=== PATIENT | female | born 1995 | race Caucasian/White ===

== ENCOUNTER 2016-09-29 14:08 | Emergency (ER) | payer OTHER ==
--- NOTE | 2016-09-29 15:35 | ED ---
Throat Pain/Nasal Congestion - HPI Summary HPI Summary: 21 yo female suffering from tmj since her tonsils were removed 6 months ago. She has seen her pmd who was referring her for physical therapy and an oral surgeon last week and she is still waiting on the referral. Her pain got worse last night and she can't sleep, no fevers, some pain with eating no other new dental pain - History of Current Complaint Chief Complaint: EDGeneral Time Seen by Provider: 09/29/16 15:28 Hx Obtained From: Patient Onset/Duration: Lasting Weeks Severity: Worse Since: - last night Associated Signs And Symptoms: Positive: Negative. Negative: Dysphagia, FB Sensation, Drooling, Wheezing, Hoarseness, Sinus Discomfort, Nasal Discharge Cough: None - Epiglottits Risk Factors Epiglottis Risk Factors: Negative - Allergies/Home Medications Allergies/Adverse Reactions: Allergies Allergy/AdvReac Type Severity Reaction Status Date / Time Sulfamethoxazole Allergy Intermediate Hives Verified 09/29/16 14:14 w/Trimethoprim [From Bactrim] Morphine Allergy Difficulty Verified 09/29/16 14:14 Breathing/Wheezing PMH/Surg Hx/FS Hx/Imm Hx Previously Healthy: No - polycystic kidney disease, depression, anxiety Endocrine/Hematology History: Denies: Hx Anticoagulant Therapy, Hx Blood Disorders, Hx Blood Transfusions, Hx Bone Marrow Disease, Hx Diabetes, Hx Systemic Lupus Erythematosus, Hx Sickle Cell Disease, Hx Thyroid Disease, Hx Anemia, Hx Unexplained Bleeding, Hx Coagulopothy, Autoimmune Disease, Other Endocrine/Hematological Disorders Cardiovascular History: Reports: Hx Hypertension - ON DAILY MEDS, Dx AT AGE 14 Denies: Hx Aneurysm, Hx Angina, Hx Angioplasty, Hx Atrial Fibrillation, Hx Auto Implanted Cardiovert Defib, Hx Cardiac Arrest, Hx Cardiomegaly, Hx Congenital Heart Disease, Hx Congestive Heart Failure, Hx Coronary Artery Disease, Hx Deep Vein Thrombosis, Hx Embolism, Hx Hypercholesterolemia, Hx Hypotension, Hx Myocardial Infarction, Hx Pacemaker/ICD, Hx Peripheral Vascular Disease, Hx Rheumatic Fever, Hx Syncope, Hx Valvular Heart Disease, Hx Supraventricular Ventricular Tachycardia, Other Cardiovascular Problems/ Disorders Respiratory History: Denies: Hx Asthma, Hx Bronchopulmonary Dysplasia, Hx Chronic Bronchitis, Hx Chronic Obstructive Pulmonary Disease (COPD), Hx Cystic Fibrosis, Hx Lung Cancer , Hx Pleural Effusion, Hx Pneumonia, Hx Pulmonary Edema, Hx Pulmonary Embolism, Hx Seasonal Allergies, Hx Sleep Apnea, Other Respiratory Problems/Disorders GI History: Reports: Hx Gastroesophageal Reflux Disease - ON DAILY MEDS, Hx Hiatal Hernia - ON DAILY MEDS, Hx Irritable Bowel Denies: Hx Cirrhosis, Hx Crohn's Disease, Hx Diverticulosis, Hx Gall Bladder Disease, Hx Gastrointestinal Bleed, Hx Jaundice, Hx Obstructive Bowel, Hx Ileostomy, Hx Pyloric Stenosis, Hx Ulcer, Hx Urosepsis, Other GI Disorders History: Reports: Other Problems/Disorders - ibs Denies: Hx Acute Renal Failure, Hx Benign Prostatic Hyperplasia, Hx Chronic Renal Failure, Hx Kidney Infection, Hx Kidney Stones Musculoskeletal History: Reports: Hx Tendonitis - Hx OF RT ELBOW, NO PROBLEMS IN "LONG TIME" Denies: Hx Arthritis, Hx Rheumatoid Arthritis, Hx Back Problems, Hx Bursitis , Hx Congenital Bone Abnormalities, Hx Fibromyalgia, Hx Gout, Hx Orthopedic Injury, Hx Osteoporosis, Hx Scoliosis, Hx of Fracture(s), Hx Joint Replacement, Other Musculoskeletal History Sensory History: Reports: Hx Cataracts, Hx Contacts or Glasses - GLASSES Denies: Hx Eye Injury, Hx Eye Prosthesis, Hx Glaucoma, Hx Legally Blind, Hx Macular Degeneration, Hx Vision Problem, Hx Deafness, Hx Hearing Aid, Hx Hearing Problem, Hx Auditory Problems, Other Sensory Impairments Opthamlomology History: Reports: Hx Contacts or Glasses - GLASSES EENT History: Denies: Hx Deafness, Hx Hearing Problem, Hx Hearing Aid, Hx Auditory Problems , Hx Seasonal Allergies, Pharyngitis, Hx Tonsillitis, Other Neurological History: Reports: Hx Migraine - GETTING WORSE THIS SUMMER 2015 USUALLY DAILY,NO Rx, JUST RESTS IN DARK Denies: Hx CVA, Hx Dementia, Hx Developmental Delay, Hx Headaches, Hx Nerve Disease, Hx Peripheral Neuropathy, Hx Seizures, Hx Spinal Cord Injury, Hx Transient Ischemic Attacks (TIA), Hx CVP, Other Neuro Impairments/Disorders Psychiatric History: Reports: Hx Anxiety - ON DAILY MEDS, Hx Depression Denies: Hx Attention Deficit Hyperactivity Disorder, Hx Autism, Hx Eating Disorder, Hx Oppositional [place] Disorder, Hx Panic Disorder, Hx Post Traumatic Stress Disorder, Hx Inpatient Treatment, Hx Community Mental Health Tx , Hx Schizophrenia, Hx Bipolar Disorder, Hx Suicide Attempt, Hx of Violent Episodes Against Others, Hx Substance Abuse, Other Psychiatric Issues/Disorders - Cancer History Hx Hematologic Symptoms: No Hx Chemotherapy: No Hx Radiation Therapy: No Hx Palliative Cancer Treatment: No - Surgical History Surgery Procedure, Year, and Place: 6 mos tonsillectomy in [place] Hx Anesthesia Reactions: No - Immunization History Hx Pertussis Vaccination: Yes Immunizations Up to Date: Yes Infectious Disease History: No Infectious Disease History: Reports: Hx Clostridium Difficile, Hx Hepatitis, Hx Human Immunodeficiency Virus (HIV), Hx of Known/Suspected MRSA, Hx Shingles, Hx Tuberculosis, Hx Known/Suspected VRE, Hx Known/Suspected VRSA, History Other Infectious Disease Denies: Traveled Outside the [place] in Last 30 Days - Social History Occupation: Unemployed Lives: With Family Alcohol Use: Occasionally Alcohol Amount: MAYBE 2-3 DRINKS/MONTH Substance Use Type: Reports: Marijuana Substance Use Comment - Amount & Last Used: daily, STATES WILL REFRAIN FOR 3 DAYS PREOP Smoking Status (MU): Light Every Day Tobacco Smoker Type: Cigarettes Amount Used/How Often: 1/2 PPD 8 YEARS Length of Time of Smoking/Using Tobacco: 8 years Have You Smoked in the Last Year: Yes Review of Systems Constitutional: Negative Negative: Fever Negative: Photophobia Negative: Dental Pain Negative: Palpitations, Chest Pain Negative: Shortness Of Breath, Cough Negative: Abdominal Pain Negative: no symptoms reported, frequency Negative: Arthralgia Negative: Rash Negative: Headache Negative: Anxious All Other Systems Reviewed And Are Negative: Yes Physical Exam Triage Information Reviewed: Yes Vital Signs On Initial Exam: Initial Vitals Temp Pulse Resp BP Pulse Ox 98.4 F 81 16 173/101 98 09/29/16 14:15 09/29/16 14:15 09/29/16 14:15 09/29/16 14:15 09/29/16 14:15 Vital Signs Reviewed: Yes Appearance: Positive: Well-Appearing, Pain Distress Skin: Positive: Warm, Skin Color Reflects Adequate Perfusion, Dry Head/Face: Positive: TMJ Tenderness Eyes: Positive: Normal, EOMI, LIZETH ENT: Positive: Normal ENT inspection, Hearing grossly normal, Pharynx normal. Negative: Pharyngeal erythema, Nasal congestion, Nasal drainage, TMs normal, TM bulging, TM dull Dental: Positive: Gross Decay/Caries @. Negative: Percussion Tenderness @, Dental Fracture @, Abscess @, Cellulitis @ Neck: Positive: Supple, Nontender, No Lymphadenopathy Respiratory/Lung Sounds: Positive: Clear to Auscultation, Breath Sounds Present Cardiovascular: Positive: Normal, RRR Abdomen Description: Positive: Nontender, No Organomegaly Bowel Sounds: Positive: Present Musculoskeletal: Positive: Normal Neurological: Positive: Normal, Sensory/Motor Intact, Alert, Oriented to Person Place, Time, CN Intact II-III, Reflexes Intact Psychiatric: Positive: Normal AVPU Assessment: Alert - [place] Coma Scale Best Eye Response: 4 - Spontaneous Best Motor Response: 6 - Obeys Commands Best Verbal Response: 5 - Oriented Diagnostics - Vital Signs Vital Signs Temp Pulse Resp BP Pulse Ox 09/29/16 14:15 98.4 F 81 16 173/101 98 - Laboratory Lab Statement: Any lab studies that have been ordered have been reviewed, and results considered in the medical decision making process. EENT Course/Dx - Course Course Of Treatment: 21 yo with tmj since tonsillectomy exam otherwise normal. will give pain meds she will call pmd to get the pt referral pt denies substance abuse hx. - Diagnoses Provider Diagnoses: TMJ (temporomandibular joint disorder) Discharge - Discharge Plan Condition: Stable Disposition: HOME Patient Education Materials: Temporomandibular Disorder (ED)
[2016-09-29 15:38] VITALS: BP 151/92
== END 2016-09-29 15:46 | disposition home or self-care (01) ==
LOC: ED 14:08
DX: M26.609 Unspecified temporomandibular joint disorder, unspecified side (principal); R68.84 Jaw pain; F17.210 Nicotine dependence, cigarettes, uncomplicated
CPT/HCPCS: 99282

== ENCOUNTER 2018-09-30 18:02 | Emergency (ER) | payer OTHER ==
--- OUTSIDE RECORDS SUMMARY | 2018-09-30 18:08 | XMS REPORT | Continuity of Care Document ---
:1995 External Reference #:[id number] Author Name Iqra Chester Care Team Providers Name Role Phone Yolanda Vasquez M.D. Primary Care Physician Unavailable Payers Type Date Identification Numbers Payment Provider Subscriber Policy Number: [id number] [employer] Jose Ramon Villegas PayID: [id number] [address] [place] [address] Advance Directives Description No Information Available Problems Date Description Provider Status Onset: 01/31/2016 Acute sinusitis Lola Ashton MD Active Onset: 01/31/2016 Obesity Lola Ashton MD Active Onset: 01/31/2016 Difficulty breathing Lola Ashton MD Active Family History Date Family Member(s) Problem(s) Comments General Thyroid Disease General Cancer General Hypertension General Diabetes General Stroke Father Polycystic renal disease;s/p renal transplant 2001 Mother Depression Mother Syncope Mother Sleep Apnea Siblings Oldest brother PKD,depression Sister depression, PTSD, Oldest sister anxiety Sister w/iron neurofibromytosis,dpressio deficiency Siblings 4 Social History Type Date Description Comments Sex Unknown Marital Status Lives With Spouse Occupation Unemployed ETOH Use Denies alcohol use Recreational Drug Use Marijuana used for pain reliefDocument: 07/19/18 - History GS Tobacco Use Start: Unknown Patient is a current 1-5 day smoker, smokes every day Smoking Status Reviewed: 08/16/18 Patient is a current 1-5 day smoker, smokes every day Exercise Type/Frequency Exercises regularly Allergies, Adverse Reactions, Alerts Date Description Reaction Status Severity Comments 01/31/2016 Morphine Active 01/31/2016 Bactrim Active Medications Medication Date Status Form Strength Qnty SIG Indications Ordering Provider Labetalol HCL 01/31/ Active Tablets 200mg 60tabs 1 tab po I12.9 Darshana 2018 bid MD Saturnino Pantoprazole 08/27/ Active Tablets DR 20mg 30tabs 1 by Q40.1 2018 mouth MD Christina every day Spironolactone 08/16/ Active Tablets 50mg 30tabs one po Q40.1 2018 daily MD Christina Lexapro 08/16/ Active Tablets 10mg 30tabs 1 by F33.0 2018 mouth MD Christina daily, in Am Gummies / Active daily Unknown 0000 Enalapril / Active Tablets 2.5mg 1 by Unknown Maleate 0000 mouth every day Melatonin ER / Active Tablets ER 10mg take one Unknown 0000 tablet/ca psule by mouth at bedtime. Tums / Active Chewtabs 500mg 2 as Unknown 0000 needed for acid stomach Nexium 24HR 08/16/ Hx Tablets DR 20mg 30tabs one po Q40.1 2018 - daily MD Christina 2018 Cipro 02/18/ Hx Tablets 500mg 1 by Unknown 2015 mouth twice a day Cefuroxime 01/30/ Hx Tablets 250mg 20tabs 1 tab by J01.80 Lola Axetil 2015 mouth MD Poli twice a day Ranitidine HCL 01/29/ Hx Capsules 150mg 1 by Unknown 2016 mouth twice a day Enalapril 01/29/ Hx Tablets 2.5mg 1 by Unknown Maleate 2016 mouth every day Hyoscyamine 01/29/ Hx Tablets ER 0.375mg 1 tab by Unknown Sulfate ER 2015 12HR mouth daily Sertraline HCL 01/29/ Hx Tablets 100mg 1 by Unknown 2016 mouth every day Spironolactone / Hx Tablets 25mg 30tabs one po Q40.1 Unknown 0000 - daily 2018 Immunizations Description No Information Available Vital Signs Date Vital Result Comment 08/16/2018 2:07pm Height 68 inches 5'8" Weight 275.12 lb Heart Rate 86 /min BP Systolic 150 mmHg BP Diastolic 102 mmHg Body Temperature 97.8 F O2 % BldC Oximetry 97 % BMI (Body Mass Index) 41.8 kg/m2 07/19/2018 11:31am Height 68 inches 5'8" Weight 265.00 lb Heart Rate 68 /min BP Systolic 152 mmHg BP Diastolic 98 mmHg Respiratory Rate 16 /min Body Temperature 97.1 F BMI (Body Mass Index) 40.3 kg/m2 02/19/2016 10:00am Height 68 inches 5'8" Weight 231.00 lb Heart Rate 58 /min BP Systolic 140 mmHg BP Diastolic 72 mmHg Respiratory Rate 14 /min O2 % BldC Oximetry 90 % BMI (Body Mass Index) 35.1 kg/m2 01/31/2016 8:49am Height 68 inches 5'8" Weight 231.38 lb Heart Rate 86 /min BP Systolic Sitting 132 mmHg BP Diastolic Sitting 77 mmHg Respiratory Rate 16 /min O2 % BldC Oximetry 98 % BMI (Body Mass Index) 35.2 kg/m2 Neck Circumference in inches 16 Results Test Date Facility Test Result H/L Range Note Laboratory test 09/01/2018 [facility] TSH 2.15 mcIU/mL N 0.34- 5.[address] ([place] [address] Stim Horm) [phone] Vitamin B12 547 pg/mL N 180-914 1 Basic Metabolic Panel 09/01/2018 [facility] Sodium 137 mmol/L N 135-[address] [place] [address] [phone] Potassium 4.4 mmol/L N 3.5-5.0 Chloride 102 mmol/L N 101-111 Co2 Carbon Dioxide 28 mmol/L N 22-32 Anion Gap 7 mmol/L N 2-11 Glucose 92 mg/dL N 70-100 Blood Urea Nitrogen 14 mg/dL N 6-24 Creatinine 0.98 mg/dL High 0.51-0.95 BUN/Creatinine Ratio 14.3 N 8-20 Calcium 10.2 mg/dL N 8.6-10.3 Egfr Non- 69.7 >60 Egfr 84.4 >60 2 Laboratory test 09/01/2018 [facility] Total Protein < 4 mg/dL finding [address] [place] [address] [phone] Normal Range 180 to 914 Indeterminate Range 145 to 180 Deficient Range <145 2 Because ethnic data is not always readily available, this report includes an eGFR for both -Americans and non- Americans. The National Kidney Disease Education Program (NKDEP) does not endorse the use of the MDRD equation for patients that are not between the ages of 18 and 70, are , have extremes of body size, muscle mass, or nutritional status, or are non- or non-. According to the National Kidney Foundation, irrespective of diagnosis, the stage of the disease is based on the level of kidney function: Stage Description GFR(mL/min/1.73 m(2)) 1 Kidney damage with normal or decreased GFR 90 2 Kidney damage with mild decrease in GFR 60-89 3 Moderate decrease in GFR 30-59 4 Severe decrease in GFR 15-29 5 Kidney failure <15 (or dialysis) Procedures Date Code Description Status 02/08/2016 96432 Sleep Study Unattended,HRT Rate,Oxygen Sat,Resp Completed Effort/Airflow Encounters Type Date Location Provider Dx Diagnosis Office Visit 08/16/2018 [facility] Internal Yolanda Vasquez MD 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 2:00p Medicine - [address] Q61.3 Polycystic kidney, unspecified I10 Essential (primary) hypertension K21.0 Gastro-esophageal reflux disease with esophagitis F41.9 Anxiety disorder, unspecified F33.0 Major depressive disorder, recurrent, mild F17.210 Nicotine dependence, cigarettes, uncomplicated Office Visit 07/19/2018 11:00a Surgical Godfrey Drake, K64.5 Perianal [facility] , FACS thrombosis Office Visit 02/19/2016 9:45a Pulmonology And Lola R06.83 [facility] MD Poli [facility] E66.09 Other obesity due to excess calories Office Visit 01/31/2016 8:45a Pulmonology And Sleep Lola Ashton R06.83 [facility] E66.09 Other obesity due to excess calories J01.80 Other acute sinusitis Office Visit 06/03/2010 3:00p Orthopedic Dinorah Becerril, 923.20 [facility] MICHAEL WangS) Mery Plan of Treatment Future Appointment(s):10/22/2018 11:30 am - Darshana Matamoros MD at [facility] Oamnkqqery37/18/2019 1:40 pm - Yolanda Vasquez MD at [facility] Internal Medicine - [address]09/09/2018 - Darshana Matamoros MDQ61.2 Polycystic kidney, adult typeNew Labs:Urinalysis Profile, Ordered: 09/09/18New Xrays:Mra Head W/O, Ordered: 09/09/18I12.9 Hypertensive chronic kidney disease with stage 1 through staNew Medication:Labetalol HCL 200 mg - 1 tab po bid
--- OUTSIDE RECORDS SUMMARY | 2018-09-30 18:08 | XMS REPORT ---
:1995 Author Organization [facility] Address [address] [place] [address] Care Team Providers Name Role Phone Navdeep Case Unavailable Unavailable PROBLEMS Type Condition ICD9-CM AMJ14-LY Onset Condition SNOMED Code Code Code Dates Status Problem Gastroesophageal K21.9 Active 067960327 reflux disease, esophagitis presence not specified Problem Smoking F17.200 Active 98647834 Problem Depression, F32.9 Active 68735933 unspecified depression type Problem On Depo-Provera for Z30.40 Active 307225367 contraception Problem Morbid (severe) E66.01 Active 87800353944713 obesity due to excess calories Problem Body mass index Z68.41 Active 950460153 (BMI) of 40.0-44.9 in adult Problem Dysfunction of both H69.83 Active 09257330 Eustachian tubes Problem Polycystic kidney Q61.3 Active 47840229 disease Problem Hypertension, I10 Active 60553579 unspecified type Problem Primary insomnia F51.01 Active 6198778 ALLERGIES No Information ENCOUNTERS Encounter Location Date Diagnosis [facility] [address] Aug, [place] [address] [place] [address] Aug, [place] [address] [place] [address] Jul, [place] [address] Q61.3 ; Hypertension, unspecified type I10 and Acute hemorrhoid K64.[address] [place] [address] Jun, Acute hemorrhoid K64.9 [place] [address] Hypertension, unspecified type I10 [place] [address] Nov, [place] [address] [facility] [address] Nov, [place] [address] [facility] [address] Oct, [place] [address] [facility] [address] [place] Oct, [place] [address] [facility] [address], [place] [address] [facility] [address] Sep, [place] [address] [facility] [address] Aug, [place] [address] [facility] [address] Aug, [place] [address] [facility] [address] Aug, [place] [address] [facility] [address] [place] Aug, [place] [address] hematuria N30.00 ; Polycystic kidney disease Q61.3 ; Depression, unspecified depression type F32.9 ; Smoking F17.200 and Hypertension, unspecified type I10 [facility] [address] Aug, [place] [address] [facility] [address] Aug, [place] [address] [facility] [address] Jul, [place] [address] [facility] [address] [place] Jul, [place] [address] [facility] [address] Jul, Primary insomnia F51.01 ; [place] [address] Depression, unspecified depression type F32.9 ; Polycystic kidney disease Q61.3 and Smoking F17.200 [facility] [address] Jul, [place] [address] [facility] [address] Jun, [place] [address] [facility] [address] Jun, [place], [place] [address] depression type F32.9 ; Polycystic kidney disease Q61.3 ; Disorder of teeth and supporting structures, unspecified K08.9 ; Smoking F17.200 and Dysfunction of both Eustachian tubes H69.83 [place] [facility] [address] Jun, [place] [address] [facility] [address] Jun, [place] [address] [facility] [address] [facility] Jun, [place] [address] May, [place] [address] May, [place], [place] [address] depression type F32.9 ; Gastroesophageal reflux disease, esophagitis presence not specified K21.9 and Elevated blood pressure reading without diagnosis of hypertension R03.[address] May, [place] [address] May, [place] [address] May, [place] [address] Apr, [place] [address] Mar, [place] [address] Mar, [place] [address] IMMUNIZATIONS No Known Immunizations SOCIAL HISTORY Never Assessed REASON FOR REFERRAL FUNCTIONAL STATUS PLAN OF CARE VITAL SIGNS MEDICATIONS Unknown Medications PROCEDURES No Known procedures RESULTS No Results REASON FOR VISIT Transfer of care Insurance Providers [facility] Member Patient Patient Patient Patient Patient Subscriber Subscriber Subscriber Group Insurance Plan Plan Plan Plan ID Relationship Address Phone Name Date of ID Name Date of No Type Insurance Insurance Insurance Coverage to Subscriber Address Phone Name Dates [facility]P [phone] UHCCP self Shraddha [id number] Medicaid [id number] 34 Medicaid [facility] [place] [facility] [address] Medicaid [address] [phone] Medicaid self Shraddha [id number] [facility] [address] [place] [address] y UHCCP [phone] UHCCP self Shraddha [id number] Medicaid [id number] Medicaid [facility]3] [address] Medicaid [address] [phone] Medicaid self Shraddha [id number] [facility] [address] [place] [address] y Case [phone] Case self Shraddha [id number] Management [place] 02 Management [facility] [address] Community y [employer] Open [phone] [employer] Open self Shraddha [id number] Access [id number] Access [facility] [address] Medical [place] Medical y [id number] MEDICAL (GENERAL) HISTORY Type Description Date Medical History hiatal hernia Medical History polycystic kidney disease Medical History PKD Medical History HTN Medical History Depression Medical History Anxiety Medical History GERD Surgical History tonsilectomy 08/2015 Hospitalization History Kidney infection 08/2014 Hospitalization History 6 kidney infections between 13 and 18 years old
[2018-09-30 18:26] VITALS: BP 142/84
--- NOTE | 2018-09-30 18:33 | UC ---
Complaint Female HPI - HPI Summary HPI Summary: 23 yo female presents with urinary burning, frequency, and pressure since this morning. Since that time she has also been having right flank pain. No hx of kidney stone. Denies hematuria, fever, abdominal pain, n/v. - History Of Current Complaint Chief Complaint: UCGU Stated Complaint: URINARY COMPLAINT Time Seen by Provider: 09/30/18 18:33 Hx Obtained From: Patient Hx Last Menstrual Period: [id number] Onset/Duration: Sudden Onset Timing: Constant Severity Initially: Moderate Severity Currently: Moderate Pain Intensity: 7 Pain Scale Used: 0-10 Numeric - Allergies/Home Medications Allergies/Adverse Reactions: Allergies Allergy/AdvReac Type Severity Reaction Status Date / Time morphine Allergy Difficulty Verified 09/30/18 18:27 Breathing/Wheezing sulfamethoxazole Allergy Hives Verified 09/30/18 18:27 [From Bactrim] trimethoprim [From Bactrim] Allergy Hives Verified 09/30/18 18:27 Home Medications: Home Medications Labetalol TAB* [Trandate TAB*] 100 mg PO BID 09/30/18 [History Confirmed ] Melatonin [Melatonin Maximum Strengt] 10 mg PO BEDTIME 09/30/18 [History Confirmed 09/30/18] Vit37/Iron/Folic Acid [Prenata] 1 chw PO DAILY 09/30/18 [History Confirmed 09/30/18] PMH/Surg Hx/FS Hx/Imm Hx - Additional Past Medical History Additional PMH: PCKD Cardiovascular History: Hypertension Other History Of: Negative For: Anticoagulant Therapy - Surgical History Surgical History: Yes Surgery Procedure, Year, and Place: 6 mos tonsillectomy in [place] - Family History Known Family History: Positive: None - Social History Lives: With Family Alcohol Use: Occasionally Alcohol Amount: MAYBE 2-3 DRINKS/MONTH Substance Use Type: Marijuana Substance Use Comment - Amount & Last Used: daily Smoking Status (MU): Light Every Day Tobacco Smoker Type: Cigarettes Amount Used/How Often: 1/2 PPD 8 YEARS Length of Time of Smoking/Using Tobacco: 8 years Have You Smoked in the Last Year: Yes Household Exposure Type: Cigarettes Review of Systems All Other Systems Reviewed And Are Negative: Yes Constitutional: Positive: Negative Respiratory: Positive: Negative Cardiovascular: Positive: Negative Gastrointestinal: Positive: Negative Genitourinary: Positive: Dysuria Neurological: Positive: Negative Psychological: Positive: Negative Physical Exam - Summary Physical Exam Summary: GENERAL: NAD. WDWN. No pain distress. SKIN: No rashes, sores, lesions, or open wounds. NECK: Supple. Nontender. No lymphadenopathy. CHEST: CTAB. No r/r/w. No accessory muscle use. Breathing comfortably and in no distress. CV: RRR. Without m/r/g. Pulses intact. Cap refill <2seconds ABDOMEN: Soft. NTTP. No distention or guarding. Mild right CVA tenderness Bowel sounds present NEURO: Alert. PSYCH: Age appropriate behavior. Triage Information Reviewed: Yes Vital Signs: Initial Vital Signs Temp 98.7 F 09/30/18 18:21 Pulse 92 09/30/18 18:21 Resp 18 09/30/18 18:21 BP 142/84 09/30/18 18:21 Pulse Ox 99 09/30/18 18:21 Laboratory Tests 09/30/18 18:40 POC Urine Color Yellow POC Urine Clarity Cloudy POC Urine pH 7.0 POC Ur Specif [place] 1.025 POC Urine Protein 3+ A POC Ur Glucose (UA) Negative POC Urine Ketones Negative POC Urine Blood 3+ A POC Urine Nitrite Positive A POC Urine Bilirubin Negative POC Urine Urobilinogen 0.2 POC U Leukocyte Esteras 1+ A Vital Signs Reviewed: Yes Complaint Female Dx - Course Course Of Treatment: UTI rx for cipro for 7 days to cover for possible early pyelonephritis. - Differential Dx/Diagnosis Provider Diagnosis: UTI (urinary tract infection) Discharge - Sign-Out/Discharge Documenting (check all that apply): Patient Departure All imaging exams completed and their final reports reviewed: No Studies - Discharge Plan Condition: Stable Disposition: HOME Prescriptions: Ciprofloxacin TAB* [Cipro 500 MG TAB*] 500 mg PO BID #14 tab Patient Education Materials: Urinary Tract Infection in Women (DC) Referrals: Navdeep Case PA [Primary Care Provider] - Additional Instructions: If you develop a fever, shortness of breath, chest pain, new or worsening symptoms - please call your PCP or go to the ED. Your blood pressure was high at todays visit. Please see your primary provider within 4 weeks for recheck and re-evaluation. - Billing Disposition and Condition Condition: STABLE Disposition: Home - Attestation Statements Provider Attestation: I was available for consult. This patient was seen by the MARQUIS. The patient was not presented to, seen by, or examined by me. -Justa
== END 2018-09-30 19:15 | disposition home or self-care (01) ==
LOC: UCEAST 18:02
DX: N39.0 Urinary tract infection, site not specified (principal); F17.210 Nicotine dependence, cigarettes, uncomplicated; I10 Essential (primary) hypertension; Z88.1 Allergy status to other antibiotic agents; Z88.2 Allergy status to sulfonamides; Z88.5 Allergy status to narcotic agent
CPT/HCPCS: 81003; 84702; 87077; 87086; 87186; 99212; G0463

== ENCOUNTER 2019-09-24 08:23 | Observation (INO) | payer OTHER ==
--- OUTSIDE RECORDS SUMMARY | 2019-09-24 08:37 | XMS REPORT | Continuity of Care Document ---
:1995 External Reference #:[id number] Author Name Philly Marcum N.P. (transmitted by agent of provider Aileen De La Torre) Address [address], [place] [address] Care Team Providers Name Role Phone Yolanda Vasquez M.D. 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 Problems Provider Date Difficulty breathing Lola Ashton MD Onset: 01/31/2016 Obesity Lola Ashton MD Onset: 01/31/2016 Acute sinusitis Lola Ashton MD Onset: 01/31/2016 Social History Type Date Description Comments Sex Unknown ETOH Use Denies alcohol use Recreational Drug Use Marijuana used for pain reliefDocument: 07/19/18 - History GS Tobacco Use Start: Unknown Patient is a current smoker, smokes every day Tobacco Use Start: Unknown Heavy tobacco smoker (more than 10 cigarettes/day) Smoking Status Reviewed: 09/21/19 Heavy tobacco smoker (more than 10 cigarettes/day) Exercise Type/Frequency Exercises regularly Allergies, Adverse Reactions, Alerts Active Allergies Reaction Severity Comments Date Morphine 01/31/2016 Bactrim 01/31/2016 Medications Active Medications SIG Qnty Indications Ordering Date Provider Triamcinolone apply twice a 30gm R21 Philly Marcum, 09/21/2019 Acetonide day until clear N.P. 0.1% Cream Cipro 1 by mouth twice 20tabs N39.0 Philly Varn, 09/21/2019 500mg Tablets a day for 10 N.P. days Labetalol HCL take 2 tablets 360tabs I12.9 Talya Saba MD 06/20/2019 200mg by mouth twice a Tablets day. Tums 2 as needed for Unknown 500mg Chewtabs acid stomach History Medications Cipro one by mouth 20tabs Talya Saba MD 07/26/2019 - 500mg Tablets twice daily for 09/20/2019 10 days Cipro 1 by mouth twice 14tabs Other Ordering 04/04/2019 - Unknown 500mg Tablets a day for 7 days Provider Immunizations Description No Information Available Vital Signs Date Vital Result Comment 09/21/2019 11:22am Height 68 inches 5'8" Weight 269.00 lb Heart Rate 87 /min BP Systolic Sitting 134 mmHg BP Diastolic Sitting 72 mmHg Body Temperature 98.0 F O2 % BldC Oximetry 97 % BMI (Body Mass Index) 40.9 kg/m2 06/20/2019 3:02pm Height 68 inches 5'8" Weight 269.00 lb Heart Rate 88 /min BP Systolic Sitting 146 mmHg left arm large cuff BP Diastolic Sitting 99 mmHg left arm large cuff O2 % BldC Oximetry 98 % room air BMI (Body Mass Index) 40.9 kg/m2 Results Test Acquired Date Facility Test Result H/L Range Note Ua Routine 09/21/2019 [facility] Ua Specific [place] <pending> Ua PH <pending> Ua Color <pending> Ua Appera <pending> Ua WBC <pending> Ua Protein <pending> Ua Glucose <pending> Ua Ketones <pending> Ua Bilirubin <pending> Ua Urobilinogen <pending> Ua Nitrite <pending> Ua Occult Blood <pending> Ua Routine 09/21/2019 [facility] Ua Specific [place] 1.020 Ua PH 5 Ua Color med yellow Ua Appera cloudy Ua WBC ++ Ua Protein ++ Ua Glucose Norm Ua Ketones Neg Ua Bilirubin Neg Ua Urobilinogen Norm Ua Nitrite Neg Ua Occult Blood 250 Renal Function 07/25/2019 [facility] Albumin 4.0 g/dL Normal 3.2-5.2 Panel [address] [place] [address] [phone] Calcium 9.1 mg/dL Normal 8.6-10.3 Co2 Carbon Dioxide 24 mmol/L Normal 22-32 Chloride 105 mmol/L Normal 101-111 Glucose 87 mg/dL Normal 70-100 Phosphorus 3.3 mg/dL Normal 2.5-5.0 Potassium 4.1 mmol/L Normal 3.5-5.0 Sodium 138 mmol/L Normal 135-145 Blood Urea Nitrogen BUN 16 mg/dL Normal 6-24 Creatinine 07/25/2019 [facility] Creatinine 1.27 mg/dL High 0.51-0.[address] [place] [address] [phone] Egfr Non- 51.3 >60 Egfr 62.0 >60 1 CBC Auto 07/25/2019 [facility] White Blood 11.8 10^3/uL High 3.5-10.[address] [place] [address] [phone] Red Blood Count 4.84 10^6/uL Normal 3.70-4.87 Hemoglobin 14.9 g/dL Normal 12.0-16.0 Hematocrit 44 % Normal 35-47 Mean Corpuscular Volume 91 fL Normal 80-97 Mean Corpuscular Hemoglobin 31 pg Normal 27-31 Mean Corpuscular HGB Conc 34 g/dL Normal 31-36 Red Cell Distribution Width 14 % Normal 10-15 Platelet Count 333 10^3/uL Normal 150-450 Mean Platelet Volume 8.8 fL Normal 7.4-10.4 Abs Neutrophils 8.2 10^3/uL High 1.5-7.7 Abs Lymphocytes 2.6 10^3/uL Normal 1.0-4.8 Abs Monocytes 0.7 10^3/uL Normal 0-0.8 Abs Eosinophils 0.2 10^3/uL Normal 0-0.6 Abs Basophils 0.1 10^3/uL Normal 0-0.2 Abs Nucleated RBC 0.0 10^3/uL Granulocyte % 69.5 % Lymphocyte % 22.1 % Monocyte % 5.7 % Eosinophil % 2.1 % Basophil % 0.6 % Nucleated Red Blood Cells % 0.3 Laboratory test 07/25/2019 [facility] Total Protein 45 mg/dL finding [address] [address] [phone] Creatinine Random Urine 114.73 mg/dL Urinalysis Profile 07/25/2019 [facility] Urine Color Yellow [address] [place] [address] [phone] Urine Appearance Cloudy Urine Specific [place] 1.011 Normal 1.010-1.030 Urine pH 7.0 Normal 5-9 Urine Urobilinogen Negative Negative Urine Ketones Negative Negative Urine Protein 1+(30 mg/dL) Abnormal Negative Urine Leukocytes 3+ Abnormal Negative Urine Blood 2+ Abnormal Negative Urine Nitrite Negative Negative Urine Bilirubin Negative Negative Urine Glucose Negative Negative Urine White Blood Cell 3+(>20/hpf) Abnormal Absent Urine Red Blood Cell 1+(3-5/hpf) Abnormal Absent Urine Bacteria 3+ Abnormal Absent Urine Squamous Epithelial Cell Present Abnormal Absent Urine Culture And 07/25/2019 [facility] Urine SEE RESULT [address] [address] [phone] CBC Auto Diff 03/31/2019 [facility] White Blood 20.7 High 3.5- [address] Count 10^3/uL 0.8 [place] [address] [phone] Red Blood Count 4.73 10^6/uL Normal 3.70-4.87 Hemoglobin 15.0 g/dL Normal 12.0-16.0 Hematocrit 43 % Normal 35-47 Mean Corpuscular Volume 91 fL Normal 80-97 Mean Corpuscular Hemoglobin 32 pg High 27-31 Mean Corpuscular HGB Conc 35 g/dL Normal 31-36 Red Cell Distribution Width 14 % Normal 10-15 Platelet Count 290 10^3/uL Normal 150-450 Mean Platelet Volume 9.0 fL Normal 7.4-10.4 Abs Neutrophils 18.5 10^3/uL High 1.5-7.7 Abs Lymphocytes 0.8 10^3/uL Low 1.0-4.8 Abs Monocytes 1.3 10^3/uL High 0-0.8 Abs Eosinophils 0.0 10^3/uL Normal 0-0.6 Abs Basophils 0.1 10^3/uL Normal 0-0.2 Abs Nucleated RBC 0.0 10^3/uL Granulocyte % 89.3 % Lymphocyte % 3.8 % Monocyte % 6.4 % Eosinophil % 0.2 % Basophil % 0.3 % Nucleated Red Blood Cells % 0.0 Comp Metabolic Panel 03/31/2019 [facility] Sodium 132 mmol/L Low 135-[address] [place] [address] [phone] Potassium 3.3 mmol/L Low 3.5-5.0 Chloride 98 mmol/L Low 101-111 Co2 Carbon Dioxide 23 mmol/L Normal 22-32 Anion Gap 11 mmol/L Normal 2-11 Glucose 131 mg/dL High 70-100 Blood Urea Nitrogen 18 mg/dL Normal 6-24 Creatinine 1.48 mg/dL High 0.51-0.95 BUN/Creatinine Ratio 12.2 Normal 8-20 Calcium 9.3 mg/dL Normal 8.6-10.3 Total Protein 7.9 g/dL Normal 6.4-8.9 Albumin 4.0 g/dL Normal 3.2-5.2 Globulin 3.9 g/dL Normal 2-4 Albumin/Globulin Ratio 1.0 Normal 1-3 Total Bilirubin 1.90 mg/dL High 0.2-1.0 Alkaline Phosphatase 63 U/L Normal 34-104 Alt 14 U/L Normal 7-52 Ast 11 U/L Low 13-39 Egfr Non- 43.3 >60 Egfr 52.4 >60 3 Laboratory test 03/31/2019 [facility] Magnesium 1.6 mg/dL Low 1.9-2.[address] [place] [address] [phone] Lipase < 10 U/L Low 11.0-82.0 C Reactive Protein 435.57 mg/L High <8.01 HCG < 0.60 mIU/mL 4 Lactic Acid 1.0 mmol/L Normal 0.5-2.0 5 Urinalysis Profile 03/31/2019 [facility] Urine Color [place]ena[place] [address] [place] [address] [phone] Urine Appearance Turbid Urine Specific [place] 1.016 Normal 1.010-1.030 Urine pH 5.0 Normal 5-9 Urine Urobilinogen Positive Abnormal Negative Urine Ketones Trace Abnormal Negative Urine Protein 2+(100 mg/dL) Abnormal Negative Urine Leukocytes 3+ Abnormal Negative Urine Blood 3+ Abnormal Negative Urine Nitrite Negative Negative Urine Bilirubin Negative Negative Urine Glucose Negative Negative Urine White Blood Cell 3+(>20/hpf) Abnormal Absent Urine Red Blood Cell 3+(>10/hpf) Abnormal Absent Urine Bacteria 2+ Abnormal Absent Urine Squamous Epithelial Cell Present Abnormal Absent Laboratory test 03/31/2019 [facility] Blood Culture SEE RESULT [address] [place] [address] [phone] Urine Culture And 03/31/2019 [facility] Urine Culture SEE RESULT [address] [place] [address] [phone] 1 Because ethnic data is not always readily [...] 15-29 5 Kidney failure <15 (or dialysis) 2 SEE RESULT BELOW Name: JEROMY DOWNS : [address]: Talya Saba MD Acct: [id number] Unit: [id number] AGE: 24 Location: LAB Re07/25/19 SEX: F Status: REG REF SPEC: [id number] JONNATHAN: 07/25/19-[address]: Talya Saba MD REQ: [id number] RECD: 07/25/19-152 STATUS: COMP _ SOURCE: URINE SPDESC: ORDERED: Urine Culture Procedure Result Reported Site Urine Culture Final 07/27/19- 0906 ML Organism 1 KLEBSIELLA PNEUMONIAE [place] Count >100,000 (Many) CFU/ML 1. KLEBSIELLA PNEUMONIAE M.I.C. RX --------- ------ Ampicillin >=32 R Cefazolin <=4 S Cefepime <=1 S Ceftriaxone <=1 S Ciprofloxacin <=0.25 S Gentamicin <=1 S Levofloxacin <=0.12 S Meropenem <=0.25 S Nitrofurantoin 128 R Tetracycline <=1 S Pipercillin/Tazobactam <=4 S Trimethoprim/Sulfamethoxazole <=20 S Amoxicillin/Clavulanic Acid <=2 S Aztreonam <=1 S Contact the Microbiology Department for any additional antibiotic reporting. * ML - Main Lab . END OF REPORT DEPARTMENT OF PATHOLOGY, [address] [place] [address] Ian Alonzo M.D. Director [facility] # [id number] 3 Because ethnic data is not always readily [...] 15-29 5 Kidney failure <15 (or dialysis) 4 <5.0 Negative 5.0 - 25.0 Indeterminate (Repeat testing recommended after 72 hours) >25.0 Positive Perimenopausal women can display HCG levels of up to 20 mIU/mL 5 [place] Severe Sepsis and Septic Shock Management Bundle Measure requires all lactic acids initially measuring >2.0 mmol/L be repeated. 6 SEE RESULT BELOW Name: JEROMY DOWNS : [address]: Orville Hu MD Acct: [id number] Unit: [id number] AGE: 23 Location: [place] [address] Re04/01/19 Dis: 04/02/19 SEX: F Status: DIS IN SPEC: [id number] JONNATHAN: 03/31/19-[address] [facility] [address]: Lzu Soriano MD REQ: [id number] RECD: 03/31/195489 STATUS: COMP [facility] DR: Yolanda Vasquez MD _ SOURCE: BLOOD,VENO SPDESC: ORDERED: Blood Cult Procedure Result Reported Site Aerobic Culture Bottle Final 04/05/19- 0500 ML No Growth Day 5 Anaerobic Culture Bottle Final 04/05/19- 0500 ML No Growth Day 5 * ML - Main Lab . END OF REPORT DEPARTMENT OF PATHOLOGY, [address] [place] [address] Ian Alonzo M.D. Director [facility] # [id number] 7 SEE RESULT BELOW Name: JEROMY DOWNS : [address]: Orville Hu MD Acct: [id number] Unit: [id number] AGE: 23 Location: [facility] 422- Re04/01/19 Dis: 04/02/19 SEX: F Status: DIS IN SPEC: [id number] JONNATHAN: 03/31/[address] [facility] [address]: Luz Soriano MD REQ: [id number] RECD: 03/31/19 STATUS: COMP OTHR DR: Yolanda Vasquez MD _ SOURCE: URINE SPDESC: ORDERED: Urine Culture Procedure Result Reported Site Urine Culture Final 04/03/19- 1040 ML Organism 1 KLEBSIELLA PNEUMONIAE [place] Count >100,000 (Many) CFU/ML 1. KLEBSIELLA PNEUMONIAE M.I.C. RX --------- ------ Ampicillin >=32 R Cefazolin <=4 S Cefepime <=1 S Ceftriaxone <=1 S Ciprofloxacin <=0.25 S Gentamicin <=1 S Levofloxacin <=0.12 S Meropenem <=0.25 S Nitrofurantoin 64 I Tetracycline <=1 S Pipercillin/Tazobactam <=4 S Trimethoprim/Sulfamethoxazole <=20 S Amoxicillin/Clavulanic Acid <=2 S Aztreonam <=1 S Contact the Microbiology Department for any additional antibiotic reporting. * ML - Main Lab . END OF REPORT DEPARTMENT OF PATHOLOGY, [address] [place] [address] Ian Alonzo M.D. Director [facility] # [id number] Procedures Description No Information Available Medical Devices Description No Information Available Encounters Type Date Location Provider Dx Diagnosis Office Visit 06/20/2019 [facility] Nephrology Talya Saba MD I12.9 Hypertensive chronic 3:00p kidney disease w stg 1-4/unsp chr kdny N18.3 Chronic kidney disease, stage 3 (moderate) Office Visit 04/02/2019 1:03p [facility] Yudith Ray, A41.9 Sepsis, Assoc,pc N.P. unspecified Hospitalists organism B96.1 Klebsiella pneumoniae as the cause of diseases classd elswhr N39.0 Urinary tract infection, site not specified N10 Acute pyelonephritis I10 Essential (primary) hypertension Q61.2 Polycystic kidney, adult type Office Visit 04/01/2019 1:03p [facility] Yudith Ray, N10 Acute pyelonephritis Assoc,pc N.P. Hospitalists A41.9 Sepsis, unspecified organism I10 Essential (primary) hypertension Office Visit 03/31/2019 [facility] Adrienne Starkey, A41.9 Sepsis, 1:03p Assoc,pc M.[place]. unspecified Hospitalists organism N10 Acute pyelonephritis I10 Essential (primary) hypertension Assessments Date Code Description Provider 09/21/2019 R21 Rash and other nonspecific skin eruption Philly Marcum, N.P. 09/21/2019 N39.0 Urinary tract infection, site not specified Philly Marcum, N.P. 06/20/2019 I12.9 Hypertensive chronic kidney disease with stage Talya Saba MD 1 through stage 4 chronic kidney disease, or unspecified chronic kidney disease 06/20/2019 N18.3 Chronic kidney disease, stage 3 (moderate) Talya Saba MD 04/02/2019 A41.9 Sepsis, unspecified organism Yudith Ray, N.P. 04/02/2019 B96.1 Klebsiella pneumoniae [K. pneumoniae] as the Yudithchato Ray, N.P. cause of diseases classified elsewhere 04/02/2019 N39.0 Urinary tract infection, site not specified Yudith Ray, N.P. 04/02/2019 N10 Acute pyelonephritis Yudith Ray, N.P. 04/02/2019 I10 Essential (primary) hypertension Yudith Ray N.P. 04/02/2019 Q61.2 Polycystic kidney, adult type Yudith Ray, N.P. 04/01/2019 N10 Acute pyelonephritis Yudith Ray, N.P. 04/01/2019 A41.9 Sepsis, unspecified organism Yudith Ray, N.P. 04/01/2019 I10 Essential (primary) hypertension Yudith Ray, N.P. 03/31/2019 A41.9 Sepsis, unspecified organism Adrienne Starkey M.D. 03/31/2019 N10 Acute pyelonephritis Adrienne Starkey M.D. 03/31/2019 I10 Essential (primary) hypertension Adrienne Starkey M.D. Plan of Treatment 09/21/2019 - Philly Marcum, N.P.R21 Rash and other nonspecific skin eruptionNew Medication:Triamcinolone Acetonide 0.1 % - apply twice a day until clearComments :For your rash I have sent a prescription to the pharmacy for Triamcinolone cream. Apply this to the affected areas as needed. I have referred you to Dr Mari.Referral:Liss Mari MD, BzentbkvrqjJ03.0 Urinary tract infection , site not specifiedNew Medication:Cipro 500 mg - 1 by mouth twice a day for 10 daysComments:For your urinary tract infection:I sent a prescription to the pharmacy for Cipro 500 mg, take one bymouth twice daily for 10 days.Avoid bladder irritants: coffee, tea, pop, alcohol, and spicy foods.I am sending a specimen for culture, the office will call if you need a different antibiotic. If symptoms persist call the office. Functional Status Description No Information Available Mental Status Description No Information Available Referrals Refer to Reason for Referral Status Appt Date Liss Mari MD Patient with pruritic rash. Her lesions appear Created consistent with insect bites but does not give a history consistent with this. Referred for evaluation and treatment. [facility] [facility], [place] [address] [phone]
[2019-09-24] MEDS ORDERED: NS 0.9% 1000 ML** 1,000 ML IV ONE ×2 (08:54→10:38)
[2019-09-24] MEDS ORDERED: Ondansetron INJ* 2 MG/ML VIAL IV ONE (08:54)
--- NOTE | 2019-09-24 09:00 | ED ---
Abdominal Pain/Female - HPI Summary HPI Summary: 24-year-old female with significant past medical history of polycystic kidney disease presents to the emergency department today with a chief complaint of flank pain and fever. Patient states she was recently diagnosed with pyelonephritis and started on ciprofloxacin approximately 3 days ago. Patient states due to her nausea she has been unable to take her antibiotics as directed and has gotten 0 doses. Patient endorses nausea, vomiting, flank pain , pain with urination, fever, abdominal pain but denies cough, nasal congestion , chest pain, shortness of breath, rash. Patient is currently comfortable in no acute distress. Surgical history no history is noncontributory. Patient has taken Tylenol prior to arrival for alleviation of her symptoms. - History of Current Complaint Chief Complaint: EDNauseaVomitDiarrh Stated Complaint: KIDNEY INFECTION/VOMITING PER PT Time Seen by Provider: 09/24/19 08:47 Hx Obtained From: Patient Onset/Duration: Gradual Onset Timing: Constant Severity Initially: Moderate Severity Currently: Severe Pain Intensity: 8 Pain Scale Used: 0-10 Numeric Location: Flank Radiates to: Flank Character: Sharp, Burning Associated Signs and Symptoms: Positive: Fever, Back Pain, Urinary Symptoms, Nausea, Vomiting, Diarrhea. Negative: Cough, Chest Pain, Constipation, Vaginal Discharge Allergies/Adverse Reactions: Allergies Allergy/AdvReac Type Severity Reaction Status Date / Time morphine Allergy Difficulty Verified 09/24/19 08:28 Breathing/Wheezing sulfamethoxazole Allergy Hives Verified 09/24/19 08:28 [From Bactrim] trimethoprim [From Bactrim] Allergy Hives Verified 09/24/19 08:28 PMH/Surg Hx/FS Hx/Imm Hx Endocrine/Hematology History: Denies: Hx Anticoagulant Therapy, Hx Blood Disorders, Hx Blood Transfusions, Hx Bone Marrow Disease, Hx Diabetes, Hx Systemic Lupus Erythematosus, Hx Sickle Cell Disease, Hx Thyroid Disease, Hx Anemia, Hx Unexplained Bleeding, Other Endocrine/Hematological Disorders Cardiovascular History: Reports: Hx Hypertension - ON DAILY MEDS, Dx AT AGE 14 Denies: Hx Aneurysm, Hx Angina, Hx Angioplasty, Hx Atrial Fibrillation, Hx Auto Implanted Cardiovert Defib, Hx Cardiac Arrest, Hx Cardiomegaly, Hx Congenital Heart Disease, Hx Congestive Heart Failure, Hx Coronary Artery Disease, Hx Deep Vein Thrombosis, Hx Embolism, Hx Hypercholesterolemia, Hx Hypotension, Hx Myocardial Infarction, Hx Pacemaker/ICD, Hx Peripheral Vascular Disease, Hx Rheumatic Fever, Hx Syncope, Hx Valvular Heart Disease, Other Cardiovascular Problems/Disorders Respiratory History: Denies: Hx Asthma, Hx Bronchopulmonary Dysplasia, Hx Chronic Bronchitis, Hx Chronic Obstructive Pulmonary Disease (COPD), Hx Cystic Fibrosis, Hx Lung Cancer , Hx Pleural Effusion, Hx Pneumonia, Hx Pulmonary Edema, Hx Pulmonary Embolism, Hx Seasonal Allergies, Hx Sleep Apnea, Other Respiratory Problems/Disorders GI History: Reports: Hx Gastroesophageal Reflux Disease - ON DAILY MEDS, Hx Hiatal Hernia - ON DAILY MEDS, Hx Irritable Bowel Denies: Hx Cirrhosis, Hx Crohn's Disease, Hx Diverticulosis, Hx Gall Bladder Disease, Hx Gastrointestinal Bleed, Hx Jaundice, Hx Obstructive Bowel, Hx Ileostomy, Hx Pyloric Stenosis, Hx Ulcer, Hx Urosepsis, Other GI Disorders History: Reports: Hx Renal Disease, Other Problems/Disorders - ibs Denies: Hx Acute Renal Failure, Hx Benign Prostatic Hyperplasia, Hx Chronic Renal Failure, Hx Kidney Infection, Hx Kidney Stones Musculoskeletal History: Reports: Hx Tendonitis - Hx OF RT ELBOW, NO PROBLEMS IN "LONG TIME" Denies: Hx Arthritis, Hx Rheumatoid Arthritis, Hx Back Problems, Hx Bursitis , Hx Congenital Bone Abnormalities, Hx Fibromyalgia, Hx Gout, Hx Orthopedic Injury, Hx Osteoporosis, Hx Scoliosis, Other Musculoskeletal History Sensory History: Reports: Hx Cataracts, Hx Contacts or Glasses Denies: Hx Eye Injury, Hx Eye Prosthesis, Hx Glaucoma, Hx Legally Blind, Hx Macular Degeneration, Hx Vision Problem, Hx Deafness, Hx Hearing Aid, Hx Hearing Problem, Other Sensory Impairments Opthamlomology History: Reports: Hx Cataracts, Hx Contacts or Glasses Denies: Hx Eye Injury, Hx Eye Prosthesis, Hx Glaucoma, Hx Legally Blind, Hx Macular Degeneration, Hx Vision Problem, Other Sensory Impairments Neurological History: Reports: Hx Migraine - GETTING WORSE THIS SUMMER 2015 USUALLY DAILY,NO Rx, JUST RESTS IN DARK Denies: Hx CVA, Hx Dementia, Hx Developmental Delay, Hx Headaches, Hx Nerve Disease, Hx Peripheral Neuropathy, Hx Seizures, Hx Spinal Cord Injury, Hx Transient Ischemic Attacks (TIA), Other Neuro Impairments/Disorders Psychiatric History: Reports: Hx Anxiety - ON DAILY MEDS, Hx Depression Denies: Hx Attention Deficit Hyperactivity Disorder, Hx Autism, Hx Eating Disorder, Hx Oppositional [place] Disorder, Hx Panic Disorder, Hx Post Traumatic Stress Disorder, Hx Inpatient Treatment, Hx Community Mental Health Tx , Hx Schizophrenia, Hx Bipolar Disorder, Hx Suicide Attempt, Hx of Violent Episodes Against Others, Hx Substance Abuse, Other Psychiatric Issues/Disorders - Cancer History Hx Hematologic Symptoms: No Hx Chemotherapy: No Hx Radiation Therapy: No Hx Palliative Cancer Treatment: No - Surgical History Surgery Procedure, Year, and Place: 6 mos tonsillectomy in [place] Hx Anesthesia Reactions: No Infectious Disease History: No Infectious Disease History: Reports: Hx Clostridium Difficile, Hx Hepatitis - pt denies, Hx Human Immunodeficiency Virus (HIV), Hx of Known/Suspected MRSA, Hx Shingles, Hx Tuberculosis, Hx Known/Suspected VRE, Hx Known/Suspected VRSA, History Other Infectious Disease Denies: Traveled Outside the [place] in Last 30 Days - Family History Known Family History: Negative: Cardiac Disease - Social History Alcohol Use: None Alcohol Amount: MAYBE 2-3 DRINKS/MONTH Hx Substance Use: Yes Substance Use Type: Reports: Marijuana Substance Use Comment - Amount & Last Used: daily Marijuana use. Hx Tobacco Use: Yes Smoking Status (MU): Light Every Day Tobacco Smoker Type: Cigarettes Amount Used/How Often: 1/2 PPD 8 YEARS Length of Time of Smoking/Using Tobacco: 8 years Have You Smoked in the Last Year: Yes Review of Systems Positive: Fever, Fatigue Eyes: Negative ENT: Negative Cardiovascular: Negative Respiratory: Negative Positive: Abdominal Pain, Vomiting, Diarrhea, Nausea Positive: dysuria, flank pain Musculoskeletal: Negative Skin: Negative Neurological/Mental Status: Negative Psychological: Normal All Other Systems Reviewed And Are Negative: Yes Physical Exam - Summary Physical Exam Summary: Patient is in no acute distress. Inspection the abdomen reveals no masses or ecchymosis. Auscultation reveals normoactive bowel sounds. Palpation reveals mild tenderness of the lower abdomen with bilateral CVA tenderness greater on the left. Triage Information Reviewed: Yes Vital Signs On Initial Exam: Initial Vitals Temp Pulse Resp BP Pulse Ox 97.8 F 95 19 162/118 96 09/24/19 08:24 09/24/19 08:24 09/24/19 08:24 09/24/19 08:24 09/24/19 08:24 Vital Signs Reviewed: Yes Appearance: Positive: Well-Appearing, No Pain Distress, Well-Nourished Skin: Positive: Warm, Skin Color Reflects Adequate Perfusion Eyes: Positive: EOMI, LIZETH ENT: Positive: Hearing grossly normal Respiratory/Lung Sounds: Positive: Clear to Auscultation, Breath Sounds Present Cardiovascular: Positive: RRR, S1, S2 Abdomen Description: Positive: Nontender, Soft, CVA Tenderness (R), CVA Tenderness (L). Negative: Distended, Guarding Bowel Sounds: Positive: Present Musculoskeletal: Positive: Strength/ROM Intact Neurological: Positive: Sensory/Motor Intact, Alert, Oriented to Person Place, Time, Normal Gait, Facial Symmetry, Speech Normal Psychiatric: Positive: Normal, Affect/Mood Appropriate AVPU Assessment: Alert Procedures - Sedation Patient Received Moderate/Deep Sedation with Procedure: No Diagnostics - Vital Signs Vital Signs Temp Pulse Resp BP Pulse Ox 09/24/19 08:24 97.8 F 95 19 162/118 96 - Laboratory Result Diagrams: 09/24/19 09:07 09/24/19 09:07 Lab Statement: Any lab studies that have been ordered have been reviewed, and results considered in the medical decision making process. Abdominal Pain Fem Course/Dx - Course Course Of Treatment: Patient was evaluated in the emergency department today for flank pain. Vitals noted and afebrile. Patient was given IV as well as 2 liters of normal saline and 4 mg Zofran for nausea. Labs returned showing leukocytosis with a white blood cell count of 18.4 with a left shift. CRP is elevated at 255. creatinine is mildly elevated at 1.40 however there are no significant electrolyte abnormalities. Urinalysis returned appearing contaminated however given the patients symptoms and presence of 2+ protein, 3 + blood, 3+ leukocyte esterase, 3+ white blood cells implies likely she has urinary tract infection with associated pyelonephritis. Ultrasound shows multiple cysts in both kidneys consistent with polycystic kidney disease but no evidence of pyelonephrosis, or abscess . Hospitalist, Dr. Mayo was consulted and 1052 for admission of the patient due to failure of outpatient therapy and inability to maintain by mouth intake or take her by mouth antibiotics. Dr. Mayo accepted admission of this patient. - Diagnoses Differential Diagnosis: Positive: Urinary Tract Infection, Other - Pyonephritis Provider Diagnoses: Pyelonephritis - Provider Notifications Discussed Care Of Patient With: Caridad Mayo - To admit the patient with pyelonephritis due to failure of outpatient therapy and inability to tolerate by mouth intake. Time Discussed With Above Provider: 10:52 Instructed by Provider To: Admit As Inpatient Discharge ED - Sign-Out/Discharge Documenting (check all that apply): Patient Departure - Discharge Plan Condition: Stable Disposition: ADMITTED TO [facility] Disposition and Condition Condition: STABLE Disposition: Admitted to [facility]
[2019-09-24 09:16] LABS: ABS Basophils 0.1 10^3/ul (0-0.2); ABS Eosinophils 0.2 10^3/ul (0-0.6); ABS Lymphocytes 1.5 10^3/ul (1.0-4.8); ABS Monocytes 1.3 10^3/ul (0-0.8); ABS Neutrophils 15.3 10^3/ul (1.5-7.7); Eosinophil % 1.3 %; Hematocrit 43 % (35-47); Hemoglobin 14.8 g/dL (12.0-16.0); Mean Corpuscular HGB Conc 35 g/dL (31-36); Mean Corpuscular Hemoglobin 31 pg (27-31); Mean Corpuscular Volume 90 fL (80-97); Mean Platelet Volume 8.5 fL (7.4-10.4); Platelet Count 354 10^3/uL (150-450); Red Blood Count 4.77 10^6 /uL (3.70-4.87); Red Cell Distribution Width 13 % (10-15); White Blood Count 18.4 10^3/uL (3.5-10.8)
[2019-09-24 09:30] LABS: Albumin 4.5 g/dL (3.2-5.2); Calcium 9.6 mg/dL (8.6-10.3); Magnesium 1.7 mg/dL (1.9-2.7); Potassium 3.8 mmol/L (3.5-5.0); Total Bilirubin 1.2 mg/dL (0.2-1.0)
[2019-09-24 09:37] LABS: Albumin/Globulin Ratio 1.1 (1-3); BUN/Creatinine Ratio 11.4 (8-20); C Reactive Protein 252.71 mg/L (<8.01); EGFR African American 55.4 (>60); EGFR Non-African American 45.8 (>60); Globulin 4.1 g/dL (2-4); Total Protein 8.6 g/dL (6.4-8.9)
[2019-09-24] MEDS ORDERED: Ciprofloxacin TAB* 500 MG PO ONE (10:12)
[2019-09-24] MEDS ORDERED: Ondansetron ODT TAB* 4 MG SL ONE (10:12)
[2019-09-24 10:22] LABS: HCG Pregnancy 0.62 mIU/mL
[2019-09-24 10:26] LABS: Urine Appearance Cloudy; Urine Bilirubin Negative (Negative); Urine Blood 3+ (Negative); Urine Color Amber; Urine Glucose Negative (Negative); Urine Ketones Trace (Negative); Urine Nitrite Negative (Negative); Urine Protein 2+(100 mg/dL) (Negative); Urine Specific Gravity 1.014 (1.010-1.030); Urine Urobilinogen Negative (Negative)
[2019-09-24 10:33] LABS: Urine Bacteria Absent (Absent); Urine Red Blood Cell 3+(>10/hpf) (Absent); Urine Squamous Epithelial Cell Present (Absent); Urine White Blood Cell 3+(>20/hpf) (Absent)
[2019-09-24] MEDS: Acetaminophen TAB* 325 MG PO PRN ×2 (11:52→23:57)
[2019-09-24] MEDS: Heparin VIAL(*) 5000 UNITS/ML VIAL (FIVE THOUSAND) SUBCUT SCH ×2 (14:07→20:47)
[2019-09-24] MEDS ORDERED: Calamine LOTION* 120 ML TOPICAL PRN (15:24)
[2019-09-24] MEDS: HYDROmorphone INJ* 0.5 MG/0.5 ML SYRINGE IV SLOW PU PRN ×2 (15:30→23:52)
[2019-09-24] MEDS: Al Hydrox/Mg Hydrox/Simet LIQ* 30 ML UDC PO PRN (15:30)
--- NOTE | 2019-09-24 15:37 | HP ---
CC: Philly Marcum NP; Dr. Saba * HISTORY AND PHYSICAL: DATE OF ADMISSION: 09/24/19 PRIMARY CARE PHYSICIAN: Philly Marcum NP ASSOCIATE MATERIAL HANDLER: Dr. Saba. CHIEF COMPLAINT: Nausea and vomiting. HISTORY OF PRESENT ILLNESS: This is a 24-year-old woman with history of polycystic kidney disease, who presents to the emergency department with 3 days of bilateral flank pain, fevers, nausea, vomiting, and diarrhea. She saw Philly on Thursday and was prescribed ciprofloxacin; however, she went to the pharmacy and the pharmacy did not have it in stock. She called again on and again the pharmacy did not have it in stock, so on Thursday they finally got the ciprofloxacin and she went to pick it up. She took a dose Thursday morning and vomited almost immediately, then she tried another dose Thursday evening and vomited again. Then this morning, she was vomiting even before she took the antibiotic, so she came to the emergency department. PAST MEDICAL HISTORY: Autosomal dominant polycystic kidney disease, hypertension, and GERD. HOME MEDICATIONS: Labetalol 400 mg b.i.d. ALLERGIES: BACTRIM and MORPHINE. FAMILY HISTORY: Polycystic kidney disease in her dad and brother. Her sister has neurofibromatosis. REVIEW OF SYSTEMS: Also positive for fevers, flank pain, dysuria, suprapubic pressure, nausea, and vomiting. PHYSICAL EXAMINATION GENERAL: Alert, well-appearing young woman, in no distress. VITAL SIGNS: Temperature 98.4, heart rate 62, respiratory rate 18, pulse ox 97 % on room air, blood pressure 139/85. HEENT: Her skin is flushed. Her extraocular movements are intact. Oral mucosa is dry. NECK: No JVP. No adenopathy. LUNGS: Clear bilaterally. CHEST: She is in a regular rate and rhythm with no murmurs. ABDOMEN: Soft, diffusely tender especially in the suprapubic area. She has CVA tenderness bilaterally and worse on the left. EXTREMITIES: She has a few pustules on her upper extremities that look like bites. DIAGNOSTIC STUDIES/LAB DATA: White blood cells 18.4, hemoglobin 14.8, platelets 354. Sodium 135, potassium 3.8, chloride 100, bicarb 24, BUN 16, creatinine 1.40. Her baseline creatinine is approximately 1.2. Lactic acid less than 0.3, magnesium 1.7. C-reactive protein 252. Beta HCG 0.62. Urinalysis: 3+ leuk esterase, 3+ white blood cells. Renal ultrasound: Multiple cysts in both kidneys are noted consistent with polycystic kidney disease. ASSESSMENT AND PLAN: This is a 24-year-old woman with history of polycystic kidney disease, who came to the emergency department with flank pain and was found to have pyelonephritis and inability to tolerate p.o. antibiotics. 1. Pyelonephritis. She has not had sepsis, but is unable to take p.o. antibiotics due to nausea and vomiting. I will start her on IV ciprofloxacin and give her IV fluid resuscitation. Her urine micro from Philly Marcum's office on 09/21/19 is growing Klebsiella pneumoniae that is sensitive to ciprofloxacin. She is hemodynamically stable and we will give her symptom management with Zofran and Dilaudid p.r.n. per her request. Of note, she has a history of morphine allergy, but says that she takes Dilaudid without any difficulty. 2. Acute kidney injury. Her baseline is difficult to tell, but it seems like she has some mild acute kidney injury. I am giving her IV fluids as above. I suspect this is related to the infection on top of polycystic kidney disease and dehydration with nausea and vomiting. 3. Nausea and vomiting, likely related to pyelonephritis. I will advance her diet as tolerated. I do not suspect a secondary gastrointestinal process at this time. 4. Hypertension. I am cutting her home labetalol in half as she is normotensive at this time and is at risk for sepsis. If she remains hemodynamically stable, we can increase her labetalol back to her home dose. 5. DVT prophylaxis. Heparin subcutaneous. 6. Diet. Clear liquids with advancement as tolerated. [id number]/[facility] #: [id number] [facility]
[2019-09-24] MEDS: Ondansetron INJ* 2 MG/ML VIAL IV PRN ×2 (16:56→20:41)
[2019-09-24] MEDS ORDERED: Ciprofloxacin 400MG IVPREMIX(* 400 MG/200 ML BAG IVPB SCH (18:00)
[2019-09-24] MEDS ORDERED: HYDROmorphone INJ* 0.5 MG/0.5 ML SYRINGE IV SLOW PU ONE (19:57)
--- NOTE | 2019-09-24 19:58 | PN ---
Progress Note - Progress Note Date of Service: 09/24/19 Note: Nursing staff that patient developed red rash to arm with nausea immediately after infusion of cipro started. Switched to ceftriaxone.
[2019-09-24] MEDS: NS 0.9% 1000 ML** 1,000 ML IV SCH (20:45)
[2019-09-24] MEDS: Labetalol TAB* 100 MG PO SCH (20:51)
[2019-09-24] MEDS ORDERED: cefTRIAXone(*) 1 GM in NS 0.9% 50 ML* 50 ML IVPB SCH (21:00)
[2019-09-25] MEDS: Acetaminophen TAB* 325 MG PO PRN (03:29)
[2019-09-25] MEDS: Heparin VIAL(*) 5000 UNITS/ML VIAL (FIVE THOUSAND) SUBCUT SCH ×2 (04:06→14:45)
[2019-09-25] MEDS: NS 0.9% 1000 ML** 1,000 ML IV SCH (05:20)
[2019-09-25] MEDS: Ondansetron INJ* 2 MG/ML VIAL IV PRN ×2 (05:41→12:54)
[2019-09-25] MEDS: HYDROmorphone INJ* 0.5 MG/0.5 ML SYRINGE IV SLOW PU PRN (06:26)
[2019-09-25 07:01] LABS: ABS Basophils 0.1 10^3/ul (0-0.2); ABS Eosinophils 0.2 10^3/ul (0-0.6); ABS Lymphocytes 2.5 10^3/ul (1.0-4.8); ABS Neutrophils 6.5 10^3/ul (1.5-7.7); Eosinophil % 2.3 %; Hematocrit 40 % (35-47); Hemoglobin 13.8 g/dL (12.0-16.0); Lymphocyte % 24.6 %; Mean Corpuscular HGB Conc 35 g/dL (31-36); Mean Corpuscular Hemoglobin 32 pg (27-31); Mean Corpuscular Volume 91 fL (80-97); Mean Platelet Volume 8.7 fL (7.4-10.4); Nucleated Red Blood Cells % 0.1; Platelet Count 322 10^3/uL (150-450); Red Blood Count 4.38 10^6 /uL (3.70-4.87); Red Cell Distribution Width 13 % (10-15); White Blood Count 10.3 10^3/uL (3.5-10.8)
[2019-09-25 07:10] LABS: Calcium 8.6 mg/dL (8.6-10.3); Potassium 3.6 mmol/L (3.5-5.0)
[2019-09-25 07:15] LABS: BUN/Creatinine Ratio 11.9 (8-20); EGFR African American 67.5 (>60); EGFR Non-African American 55.8 (>60)
[2019-09-25] MEDS ORDERED: traMADol TAB* 50 MG PO PRN (08:01)
[2019-09-25] MEDS: Labetalol TAB* 100 MG PO SCH (08:37)
[2019-09-25 11:08] VITALS: BP 127/77
[2019-09-25] MEDS: Al Hydrox/Mg Hydrox/Simet LIQ* 30 ML UDC PO PRN (11:13)
--- NOTE | 2019-09-25 19:31 | DS ---
CC: Philly Marcum NP; Dr. Saba * DISCHARGE SUMMARY: DATE OF ADMISSION: 09/24/19 DATE OF DISCHARGE: 09/25/19 PRINCIPAL DISCHARGE DIAGNOSES: 1. Pyelonephritis. 2. Polycystic kidney disease. SECONDARY DISCHARGE DIAGNOSES: 1. Hypertension. 2. Gastroesophageal reflux disease. MEDICATIONS FOR DISCHARGE: 1. Labetalol 400 mg b.i.d. 2. Cefdinir 300 mg b.i.d. for 10 more days. PHYSICAL EXAMINATION: Temperature 98.4, heart rate 66, respiratory rate 16, pulse ox 96% on room air, blood pressure 127/77. General: Alert, well- appearing young woman, in no distress, sitting in bed. HEENT: Pupils equal, round, reactive to light. Oral mucosa is moist. Neck: No JVP. No adenopathy. Chest: Regular rate and rhythm with no murmurs. Her lungs are clear bilaterally. Abdomen: Soft with mild tenderness on the left side and mild CVA tenderness on the left side. Extremities: No edema, rashes or ulcers. LABS ON THE DAY OF DISCHARGE: White blood cells are 10.3 from 18.4 the day prior. Her creatinine is 1.1 from 1.4 the day prior. The microbiology from her urinalysis collected on 09/21/19 in her PCP's office is significant for Klebsiella pneumoniae that is sensitive to everything except nitrofurantoin and ampicillin. HOSPITAL COURSE BY PROBLEM: 1. Ms. Sainz presented to the emergency department 3 days after seeing her PCP and being prescribed ciprofloxacin. However, unfortunately, her pharmacy did not have the ciprofloxacin in stock. She was complaining of nausea and vomiting in the emergency department and was unable to keep the p.o. Cipro down once she finally got it filled. She was admitted for IV antibiotics. She was not septic. She received IV CIPROFLOXACIN, however, she had an allergic reaction to it, so was changed to ceftriaxone, which the Klebsiella is sensitive to. On the day following admission, she was able to tolerate a full diet. Her renal function returned to normal. Her leukocytosis resolved. She remained afebrile throughout her hospitalization and she felt eager for discharge. I am discharging her on cefdinir for 10 more days and she will follow up with her PCP and her sueding and buffing machine operator. 2. Polycystic kidney disease: She follows with Nephrology. Her renal function is at baseline on the day of discharge. 3. Hypertension. Her labetalol was cut in half while she was here with an infection, but she is being discharged on her home dose of labetalol. CONDITION AT THE TIME OF DISCHARGE: Stable. DISPOSITION: Discharged to home with her and follow up with her PCP and her sueding and buffing machine operator. [id number]/[facility] #: [id number] MTDD
== END 2019-09-25 14:35 | disposition home or self-care (01) ==
LOC: ED 08:23 → MED 11:10
PROVIDERS: ADMIT Internal Medicine; ATTEND Internal Medicine
DX: N12 Tubulo-interstitial nephritis, not specified as acute or chronic (principal); Q61.3 Polycystic kidney, unspecified; I10 Essential (primary) hypertension; R50.9 Fever, unspecified; K21.9 Gastro-esophageal reflux disease without esophagitis; N28.9 Disorder of kidney and ureter, unspecified; R10.84 Generalized abdominal pain; F41.9 Anxiety disorder, unspecified; F17.210 Nicotine dependence, cigarettes, uncomplicated; Z79.899 Other long term (current) drug therapy; Z88.6 Allergy status to analgesic agent; Z86.718 Personal history of other venous thrombosis and embolism
CPT/HCPCS: 36415; 76775; 80048; 80053; 81003; 81015; 83605; 83690; 83735; 84702; 85025; 86140; 87086; 96361; 96365; 96375; 96376; 99284; A9270-GY; G0378; J0696; J0744; J1170; J1644; J2405